=== PATIENT | male | born 1985 ===

== ENCOUNTER 2020-12-02 15:16 | Emergency (ER) | payer OTHER ==
[~2020-12-02] VITALS: Ht 175.3 cm; Wt 63.5 kg
[~2020-12-02 15:16] MED LIST: IBUPROFEN800 MG PO; LEVSIN0.125 MG PO; TAMS0.4C PO
[2020-12-02] MEDS ORDERED: LEXAPRO5 MG (15:42)
== END 2020-12-02 18:41 | disposition home or self-care (01) ==
LOC: ER 15:16
DX: S90.872A Other superficial bite of left foot, initial encounter (principal); W56.51XA Bitten by other fish, initial encounter; Y93.89 Activity, other specified; Y92.832 Beach as the place of occurrence of the external cause; Y99.8 Other external cause status